=== PATIENT | female | born 1965 | race Caucasian/White ===

== ENCOUNTER 2020-05-24 17:42 | Emergency (ER) | payer OTHER ==
[~2020-05-24] VITALS: Ht 160 cm; Wt 81.0 kg
[2020-05-24 17:47] VITALS: BP 177/103
[2020-05-24] MEDS ORDERED: EPINEPHrine SYRINGE 1 MG/10 ML SYRINGE ONE (17:52)
--- NOTE | 2020-05-24 18:06 | PHYS DOC ---
Past History Past Medical History: Hypertension Past Surgical History: No Surgical History Alcohol Use: None General Adult EDM: Chief Complaint: ALLERGIC REACTION HPI: HPI: Patient is a 54-year-old female coming in for facial swelling that started at 1400. Patient has had similar reactions in the past and has multiple allergies to medications and food allergies. She took 1 tablet of Benadryl when the symptoms started but they continue to worsen. On arrival to the emergency d [facility] she is complaining of throat scratchiness and itching in her hands. Also takes lisinopril daily, for about 5 years, without reaction. Review of Systems: Review of Systems: Constitutional: Denies fever or chills Eyes: Denies change in visual acuity, eyelid swelling HENT: Denies nasal congestion or sore throat, throat scratching, facial swelling Respiratory: Denies cough or shortness of breath Cardiovascular: Denies chest pain or edema GI: Denies abdominal pain, nausea, vomiting, bloody stools or diarrhea : Denies dysuria Musculoskeletal: Denies back pain or joint pain Integument: Denies rash, but has itching Neurologic: Denies headache, focal weakness or sensory changes Endocrine: Denies polyuria or polydipsia Lymphatic: Denies swollen glands Psychiatric: Denies depression or anxiety Current Medications: Current Meds: Current Medications Medications (Trade) Dose Ordered Sig/Jerry Start Time Stop Time Status Last Admin Dose Admin Epinephrine HCl (EPINEPHrine AMPULE) 1 mg STK-MED ONCE 05/24/20 17:53 05/24/20 17:53 DC Epinephrine HCl (EPINEPHrine SYRINGE) 1 mg STK-MED ONCE 05/24/20 17:52 05/24/20 17:52 DC Allergies: Allergies: Allergies Uncoded Allergies Type Severity Reaction Last Updated Verified YOGURT Allergy Severe THROAT SWELLING 05/24/20 Physical Exam: PE: Constitutional: Well developed, well nourished, significant facial swelling HENT: Normocephalic, atraumatic, bilateral external ears normal, oropharynx moist, no oral exudates, nose normal. [], No swelling of oropharynx or tongue Eyes: PERRLA, EOMI, conjunctiva normal, no discharge. [] Eyelid swelling, difficulty opening eyes Neck: Normal range of motion, no tenderness, supple, no stridor. [] Cardiovascular:Heart rate regular rhythm, no murmur [] Lungs & Thorax: Bilateral breath sounds clear to auscultation [] Abdomen: Bowel sounds normal, soft, no tenderness, no masses, no pulsatile masses. [] Skin: Warm, dry, no erythema, no rash. [] Back: No tenderness, no CVA tenderness. [] Extremities: No tenderness, no cyanosis, no clubbing, ROM intact, no edema. [] Neurologic: Alert and oriented X 3, normal motor function, normal sensory function, no focal deficits noted. [] Psychologic: Affect normal, judgement normal, mood normal. [] Current Patient Data: Vital Signs: Vital Signs Date Time Temp Pulse Resp B/P (MAP) Pulse Ox O2 Delivery O2 Flow Rate FiO2 05/24/20 17:47 97.1 103 20 177/103 (127) 97 Room Air EKG: EKG: [] Radiology/Procedures: Radiology/Procedures: [] Heart Score: Risk Factors: Risk Factors: DM, Current or recent (<one month) smoker, HTN, HLP, family history of CAD, obesity. Risk Scores: Score 0 - 3: 2.5% MACE over next 6 weeks - Discharge Home Score 4 - 6: 20.3% MACE over next 6 weeks - Admit for Clinical Observation Score 7 - 10: 72.7% MACE over next 6 weeks - Early Invasive Strategies Course & Med Decision Making: Course & Med Decision Making Observed in the emergency department after IM epinephrine, IV Benadryl, IV Solu- Medrol, IV Pepcid given. Rapid improvement in symptoms. No return of any of the swelling. Patient states that she has no scratchiness in her airway anymore. [] Kelvin Disclaimer: Kelvin Disclaimer: This electronic medical record was generated, in whole or in part, using a voice recognition dictation system. Departure Departure: Impression: Primary Impression: Severe allergic reaction Disposition: 01 DC HOME SELF CARE/HOMELESS Condition: IMPROVED Referrals: NON,STAFF (PCP) Patient Instructions: Ephedrine injection Additional Instructions: If itching or swelling occurs take 50 mg of Benadryl by mouth, recommend liquid form for faster absorption. Scripts Epinephrine (EPIPEN 2-TATIANA) 0.3 Mg/0.3 Ml Auto.injct 1 SYR IM ONCE for severe allergic reaction for 1 Day, #1 PACKET 0 Refills Prov: JASON VIRAMONTES MD 05/24/20 Famotidine (FAMOTIDINE) 20 Mg Tablet 1 TAB PO BID for gastritis for 10 Days, #20 TAB 0 Refills Prov: JASON VIRAMONTES MD 05/24/20 Prednisone (PREDNISONE) 50 Mg Tablet 1 TAB PO DAILY for allergic reaction for 5 Days, #5 TAB You received this medication in the emergency room today. You will starting your next dose tomorrow. Prov: JASON VIRAMONTES MD 05/24/20 JASON VIRAMONTES MD May 24, 2020 18:06
[2020-05-24] MEDS ORDERED: FAMOTIDINE 20 MG/2 ML VIAL ONE (18:10)
[2020-05-24] MEDS ORDERED: diphenhydrAMINE 50 MG/ML VIAL IVP ONE (18:15)
[2020-05-24] MEDS ORDERED: methylPREDNISolone SOD SUCC PF 125 MG/2 ML VIAL. IV ONE (18:15)
[2020-05-24] MEDS ORDERED: EPIN0.3A4 IM (21:17)
[2020-05-24] MEDS ORDERED: FAMO20TA5 PO (21:17)
[2020-05-24] MEDS ORDERED: PRED50TA PO (21:17)
[2020-05-24] MEDS ORDERED: predniSONE 10 MG TABLET PO ONE (21:30)
== END 2020-05-24 22:05 | disposition home or self-care (01) ==
LOC: ER 17:42
DX: T78.49XA Other allergy, initial encounter (principal); I10 Essential (primary) hypertension; Z91.018 Allergy to other foods; X58.XXXA Exposure to other specified factors, initial encounter
CPT/HCPCS: 96374; 96375; 99284; J1200; J2930